=== PATIENT | male | born 1960 | race Caucasian/White ===

== ENCOUNTER 2020-01-18 16:13 | Inpatient (IN) | payer MEDICARE, MEDICAID ==
[~2020-01-18] VITALS: Ht 175.3 cm; Wt 59.0 kg
[2020-01-18] MEDS ORDERED: TEMAZEPAM30 MG ORAL (16:20)
[2020-01-18 16:30] VITALS: BP 120/79
[2020-01-18] MEDS ORDERED: Haloperidol 5mg/ml Inj IM ONE (16:30)
--- NOTE | 2020-01-18 16:30 | NUR ---
ED Nurse Note: Pt BIBA for behavioral complaint. Pt is from psych facility and was brought in due to running into streets and hearing voices telling him to harm himself. Pt denies SI and HI at this time. He is alert and ox4, bizarre.
[2020-01-18] MEDS ORDERED: HALOPERIDOL1 MG ORAL (16:32)
[2020-01-18] MEDS ORDERED: ZYPREXA10 MG ORAL (16:32)
[2020-01-18 17:18] LABS: BASOPHILS % (AUTO) 1.2 % (0.0-2.0); EOSINOPHILS % (AUTO) 1.6 % (0.0-3.0); HEMATOCRIT 39.4 % (42.0-52.0); HEMOGLOBIN 13.1 G/DL (14.2-18.0); LYMPHOCYTES % (AUTO) 29.5 % (20.0-45.0); MEAN CORPUSCULAR VOLUME 89 FL (80-99); MONOCYTES % (AUTO) 10.1 % (1.0-10.0); NEUTROPHILS % (AUTO) 57.6 % (45.0-75.0); PLATELET COUNT 129 K/UL (150-450); RED BLOOD COUNT 4.43 M/UL (4.70-6.10); RED CELL DISTRIBUTION WIDTH 11.6 % (11.6-14.8); WHITE BLOOD COUNT 4.6 K/UL (4.8-10.8)
[2020-01-18 17:23] LABS: ANION GAP 11 mmol/L (5-15); BLOOD UREA NITROGEN 20 mg/dL (7-18); CALCIUM 9.1 MG/DL (8.5-10.1); CARBON DIOXIDE 29 MMOL/L (21-32); CHLORIDE 104 MMOL/L (98-107); CREATININE 1.4 MG/DL (0.55-1.30); POTASSIUM 3.7 MMOL/L (3.5-5.1); SODIUM 143 MMOL/L (136-145)
[2020-01-18 17:29] LABS: ALANINE AMINOTRANSFERASE 16 U/L (12-78); ALBUMIN 3.7 G/DL (3.4-5.0); ALBUMIN/GLOBULIN RATIO 1.1 (1.0-2.7); ALKALINE PHOSPHATASE 99 U/L (46-116); ASPARTATE AMINO TRANSFERASE 16 U/L (15-37); BILIRUBIN,TOTAL 0.2 MG/DL (0.2-1.0)
--- NOTE | 2020-01-18 18:00 | NUR ---
ED Nurse Note: COVID swab sent.
--- NOTE | 2020-01-18 18:44 | Emergency Room Report ---
History of Present Illness General Chief Complaint: Behavioral Complaint Source: Patient, EMS (Gi Elizalde) Present Illness HPI 59 YO Male presents to the ED brought by RA for auditory hallucination of voices telling him to hurt himself. According to RA, pt. was running out in the street and reporting hallucinations .Pt. was residing at a board and care residence and has a known hx of bipolar. pt. takes Haldol and Zyprexa. He is poorly cooperative and keeps saying "He shouldn't be telling us this" and "He shouldn't be here". He does not elaborate. He admits to hearing voices. He does not give specific details regarding what the voices are directing him to do. He denies drug use. Pt. reports psychiatric hx. He denies pain. He denies SOB, DEVRIES or CP. HPI and ROS are limited due to poor pt. cooperation and unwillingness to provide specific details. (Gi Elizalde) Allergies: Coded Allergies: No Known Allergies (Unverified , 01/18/20) COVID-19 Screening Contact w/high risk pt: No Recent Travel to affected area: No Experienced COVID-19 symptoms?: No COVID-19 Testing performed MOLD HOISTER: No (Gi Elizalde) Patient History Past Medical History: see triage record, psych hx Reviewed Nursing Documentation: PMH: Agreed (Gi Elizalde) Nursing Documentation-PMH Past Medical History: No History, Except For History Of Psychiatric Problem: Yes - schizophrenia, bipolar (Gi Elizalde) Review of Systems All Other Systems: limited (Gi Elizalde) Physical Exam Vital Signs Date Time Temp Pulse Resp B/P (MAP) Pulse Ox O2 Delivery O2 Flow Rate FiO2 01/18/20 16:13 97.9 90 17 113/83 (93) 97 Room Air 01/18/20 16:30 98 Sp02 EP Interpretation: reviewed, normal General Appearance: no apparent distress, alert, GCS 15, non-toxic, thin, other - Disheveled, poor fingernail hygiene. Patient has visible and obvious insect infestation., Chronically Ill Head: normocephalic, atraumatic Eyes: bilateral eye normal inspection, bilateral eye PERRL ENT: hearing grossly normal, normal voice Neck: full range of motion Respiratory: chest non-tender, lungs clear, normal breath sounds, no wheezing, speaking full sentences Cardiovascular #1: regular rate, rhythm, no edema Gastrointestinal: non tender, soft Musculoskeletal: back normal, normal range of motion, gait/station normal, non- tender Neurologic: alert, motor strength/tone normal, oriented x3, sensory intact, responsive, speech normal Psychiatric: other - auditory hallucinations. pt. is restless. Pt. is poorly cooperative in conversation. Pt. is apprehensive with providing details. Denies HI. Denies Si plan Skin: other - poor skin and nail hygiene (Gi Elizalde) Medical Decision Making PA Attestation Dr. Dewey is my supervising Physician whom patient management has been discussed with. (Gi Elizalde) Diagnostic Impression: Primary Impression: Psychosis Qualified Codes: F25.0 - Schizoaffective disorder, bipolar type Additional Impressions: Failure to thrive Qualified Codes: R62.7 - Adult failure to thrive Infestation by insect ER Course 59 YO Male presents to the ED brought by RA for auditory hallucination of voices telling him to hurt himself. According to RA, pt. was running out in the street and reporting hallucinations .Pt. was residing at a board and care residence and has a known hx of bipolar. pt. takes Haldol and Zyprexa. He is poorly cooperative and keeps saying "He shouldn't be telling us this" and "He shouldn't be here". He does not elaborate. He admits to hearing voices. He does not give specific details regarding what the voices are directing him to do. He denies drug use. Pt. reports psychiatric hx. He denies pain. He denies SOB, DEVRIES or CP. HPI and ROS are limited due to poor pt. cooperation and unwillingness to provide specific details. Pt is hyperactive, and has a very anxious and restless affect. Ddx considered but are not limited to OD, SI/HI, psychosis, UTI, intoxication Vital signs: are WNL, pt. is afebrile H&PE are most consistent with behavioral/mental health issue ORDERS: -CBC: Pancytopenia - CMP: Cr. 1.4, BUN 20 -Serum ETOH: WNL -UA: Pending at time of sign-out -UDS: Pending at time of sign-out -Salicylates and Acetaminophen - no acute intoxication. ED INTERVENTIONS: - 5mg Haldol PO - 2mg Risperdal PO - 1 liter NS IV Psychiatric Consultation: Dr. Parker. Pt. was evaluated/examined by Dr. Parker who recommended 2mg Risperdal and hospital admission for acute psychosis in geriatric patient and failure to thrive. DISPOSITION: at this time pt. will be admitted to Dr. Mendieta for acute psychosis in geriatric patient and failure to thrive. Dr. Mendieta agreed to admit the pt. and to continue pt. care management. Labs Test 01/18/20 16:50 White Blood Count 4.6 K/UL (4.8-10.8) Red Blood Count 4.43 M/UL (4.70-6.10) Hemoglobin 13.1 G/DL (14.2-18.0) Hematocrit 39.4 % (42.0-52.0) Mean Corpuscular Volume 89 FL (80-99) Mean Corpuscular Hemoglobin 29.5 PG (27.0-31.0) Mean Corpuscular Hemoglobin Concent 33.2 G/DL (32.0-36.0) Red Cell Distribution Width 11.6 % (11.6-14.8) Platelet Count 129 K/UL (150-450) Mean Platelet Volume 10.2 FL (6.5-10.1) Neutrophils (%) (Auto) 57.6 % (45.0-75.0) Lymphocytes (%) (Auto) 29.5 % (20.0-45.0) Monocytes (%) (Auto) 10.1 % (1.0-10.0) Eosinophils (%) (Auto) 1.6 % (0.0-3.0) Basophils (%) (Auto) 1.2 % (0.0-2.0) Sodium Level 143 MMOL/L (136-145) Potassium Level 3.7 MMOL/L (3.5-5.1) Chloride Level 104 MMOL/L (98-107) Carbon Dioxide Level 29 MMOL/L (21-32) Anion Gap 11 mmol/L (5-15) Blood Urea Nitrogen 20 mg/dL (7-18) Creatinine 1.4 MG/DL (0.55-1.30) Estimat Glomerular Filtration Rate 51.7 mL/min (>60) Glucose Level 106 MG/DL (74-106) Calcium Level 9.1 MG/DL (8.5-10.1) Total Bilirubin 0.2 MG/DL (0.2-1.0) Aspartate Amino Transf (AST/SGOT) 16 U/L (15-37) Alanine Aminotransferase (ALT/SGPT) 16 U/L (12-78) Alkaline Phosphatase 99 U/L (46-116) Total Protein 7.1 G/DL (6.4-8.2) Albumin 3.7 G/DL (3.4-5.0) Globulin 3.4 g/dL Albumin/Globulin Ratio 1.1 (1.0-2.7) Salicylates Level 0.8 ug/mL (2.8-20) Acetaminophen Level < 2 MCG/ML (10-30) Serum Alcohol < 3 mg/dL (Gi Elizalde) ER Course Dr Edgar was seen and evaluated by [facility] El[facility]al[facility]. Patient has extensive psychiatric history. Patient was evaluated by Dr Parker. Agrees that patient is gravely disabled and cannot be safely discharged. She recommends admission. Labs drawn. Given Risperdal. Patient will be admitted to Dr Sahu service. (Brian Dewey MD) Last Vital Signs Date Time Temp Pulse Resp B/P (MAP) Pulse Ox O2 Delivery O2 Flow Rate FiO2 01/18/20 16:30 97.9 76 18 120/79 98 Room Air 01/18/20 16:30 98 (Gi Elizalde) Status: improved (Brian Dewey MD) Disposition: ADMITTED INPATIENT Condition: Serious Physician Consult: Dr. Parker (Gi Elizalde) Referrals: NON PHYSICIAN (PCP) Gi Elizalde Jan 18, 2020 18:44 Brian Dewey MD Jan 18, 2020 19:26
[2020-01-18 18:58] VITALS: BP 118/82
--- NOTE | 2020-01-18 18:59 | NUR ---
ED Nurse Note: ERMD aware pt unable to provide urine yet. Refusing straight cath.
--- NOTE | 2020-01-18 19:05 | NUR ---
ED Nurse Note: Report received from BENNIE Montesinos.
--- NOTE | 2020-01-18 19:30 | NUR ---
NURSE NOTES: Received patient from ER, on wheelchair accompanied by 2 staff. Alert and oriented x4. Per patient, no suicidal intention at this time. Skin assessment done. No open wound but there is redness on the face, flaking and dryness on the head. Per ER nurse there were unknown bugs seen on patient's clothing and was put on blue bag. Belongings checked. Charge nurse made aware. Put on isolation precautions on time of arrival. Vital signs taken and recorded. Oriented to room. Instructed to use call light for assistance. Obtained admission orders from Dr. Mendieta, orders in and carried out. Addendum: 01/19/20 at 0258 by LOULOU GOODMAN RN this note is for 01/18/20 - 21:45
--- NOTE | 2020-01-18 19:40 | NUR ---
ED Nurse Note: Report given to BENNIE Villarreal.
--- NOTE | 2020-01-18 19:50 | NUR ---
ED Nurse Note: Pt is stable for transfer to [facility] unit at this time per ERMD. Pt is aaox4, breathing is normal and unlabored. Pt is in no acute distress. Pt taken to unit via gurney with ISO precuations. Pt belongings sent with pt. Pt IV intact and patent.
[2020-01-18 20:00] VITALS: BP 134/85
[2020-01-18] MEDS ORDERED: OLANZapine 10mg tab ORAL SCH (21:00)
[2020-01-18] MEDS: Heparin 5000 units/ml inj SUBQ SCH (21:00)
[2020-01-18] MEDS ORDERED: LORazepam 1mg tab ORAL PRN (21:18)
--- NOTE | 2020-01-18 21:20 | NUR ---
NURSE NOTES: Called Dr. Parker to clarify patient's Haloperidol dose from the facility he came from. Unable to read back due to the noise of MD's background then she hung up. After, some new orders were seen from MD. Charge nurse made aware.
[2020-01-19] VITALS: BP 159/99
--- NOTE | 2020-01-19 03:00 | Consultation ---
DATE OF CONSULTATION: 01/18/2020 CONSULTING PHYSICIAN: Maximo Parker M.D. HISTORY OF PRESENT ILLNESS: This is a 59-year-old male with a history of schizophrenia, who was admitted to the hospital, who was found on the streets. He is more confused than baseline. He has sherwood all over his body. He is tangential and agitated, unable to be engaged and answer the questions. He in the emergency room due to severe agitation. The patient is disheveled and malodorous. He is angry and is unable to provide any meaningful history. PAST PSYCHIATRY HISTORY: He denies any psychiatric hospitalization. PAST MEDICAL HISTORY: Unknown. ALLERGIES: No known drug allergies. SUBSTANCE ABUSE HISTORY: No known history of illicit drug use or alcohol. MENTAL STATUS EXAMINATION: The patient is awake, oriented to self, place. Uncooperative. Mood is angry. Affect is flat. Thought process is disorganized. Thought content, no suicidal or homicidal ideation. Cognition is impaired. Insight and judgment impaired. ASSESSMENT: [place] I Acute encephalopathy. . Schizophrenia. [place] II Deferred. [place] III As above. [place] IV Low. [place] V 20. PLAN: We will admit the patient to medical floor. Maximo Parker M.D. DR: SHERI JOB#: [id number] CC:
[2020-01-19 04:00] VITALS: BP 141/76
--- NOTE | 2020-01-19 07:30 | NUR ---
NURSE NOTES: Received patient in bed. Awake, A/O x4. On room air. Patient denies pain. IV in the Left AC, site intact. Patient denies hallucinations at this time. Bed low and locked.
--- NOTE | 2020-01-19 07:33 | NUR ---
HAND-OFF: Report given to BENNIE Pham.
[2020-01-19 08:00] VITALS: BP 112/76
[2020-01-19] MEDS: Docusate 100mg cap ORAL SCH ×2 (08:29→17:10)
[2020-01-19] MEDS: Heparin 5000 units/ml inj SUBQ SCH ×2 (09:00→20:43)
--- NOTE | 2020-01-19 09:01 | NUR ---
NURSE NOTES: Patietn refused heparin injection x3. Patient educated on risks and benefits.
[2020-01-19 12:00] VITALS: BP 122/77
--- NOTE | 2020-01-19 12:45 | NUR ---
CASE MANAGEMENT:INITIAL REVIEW 59 YR OLD MALE BIBA FROM [facility];BEHAVIORAL COMPLAINT SI;FAILURE TO THRIVE. PSYCHOSIS. INFESTATION BY INSECT. 98.2 90 20 124/85 97% ON RA BUN 20 CR 1.4 IS;HALDOL IM RISPERDAL PO IVF NSBOLUS COVID-19 PCR ~ RESULT PENDING ADMITTED TO MED SURG MED SURG STATUS DCP;PATIENT IS FROM [facility]
[2020-01-19 16:00] VITALS: BP 151/80
--- NOTE | 2020-01-19 19:01 | NUR ---
HAND-OFF: Report given to Mel AVERY.
--- NOTE | 2020-01-19 19:10 | NUR ---
NURSE NOTES: received report from aiyana chen. patient on bed, asleep. with iv line on the left ac, saline lock. denies any pain or discomfort. with urinal on the bedside.per gustavo," patient is calm through out his shift.no episodes of aggressiveness or suicidal ideation". bed locked and in lowest position. call light and light button within easy reach. bed alarm on. will continue plan of care
--- NOTE | 2020-01-19 19:15 | History and Physical Report ---
DATE OF ADMISSION: 01/18/2020 REASON FOR ADMISSION: Toxic metabolic encephalopathy. HISTORY OF PRESENT ILLNESS: This is a 59-year-old male with a history of schizophrenia, admitted, found on the street. The patient is with increased confusion. The patient is agitated, difficult to fully obtain. The patient appears to be disheveled and malodorous. The patient is not cooperating at this time. The patient's care is discussed and reviewed. PAST MEDICAL HISTORY: Mostly psychiatric with multiple psychiatric admissions. The patient has no clear medical history at this time. MEDICATIONS: Reviewed. ALLERGIES: Reviewed. SOCIAL HISTORY: Unclear. The patient appears to be homeless. REVIEW OF SYSTEMS: The patient is refusing to answer at this time. PHYSICAL EXAMINATION: GENERAL: The patient is a disheveled-appearing male. VITAL SIGNS: Blood pressure 112/76, pulse 70, respirations 20, saturations 100%, and temperature 97.9. HEENT: Negative. NECK: Supple. Extraocular motions intact. LUNGS: Moderate breath sounds. Moderate air entry. CARDIAC: S1, S2. Regular rate and rhythm. ABDOMEN: Soft, nontender. EXTREMITIES: No cyanosis or clubbing. The patient appears to be overall nonfocal. LABORATORY DATA: Reviewed. BUN 20, creatinine 1.4, hemoglobin 13, and hematocrit 39. IMPRESSION: 1. Anemia. 2. Chronic renal failure. 3. Possibly bipolar disorder. 4. Metabolic encephalopathy. 5. Disheveled and homeless state. RECOMMENDATIONS: Supportive care. Encourage fluids. Psychiatric followup and recommendation. Possible need for admission versus a locked psychiatric unit. We will reassess and recommend and assist with disposition from a medical standpoint. Jayson Mendieta M.D. DR: FELICITA JOB#: [id number] CC:
[2020-01-19 20:00] VITALS: BP 104/64
--- NOTE | 2020-01-19 21:31 | Psych Consult Progress Note ---
Psychiatry Progress Note Psychiatry Progress Note Medications Current Medications Medications (Trade) Dose Ordered Sig/Lia Route PRN Reason Start Time Stop Time Status Last Admin Dose Admin Acetaminophen (Tylenol) 650 mg Q4H PRN ORAL Temp >100.5/mild pain 01/18/20 20:45 02/17/20 20:44 Al Hydroxide/Mg Hydroxide (Mylanta) 30 ml Q4H PRN ORAL stomach upset/heartburn 01/18/20 20:45 02/17/20 20:44 Docusate Sodium (Colace) 100 mg BID ORAL 01/19/20 09:00 02/18/20 08:59 01/19/20 17:10 Ferrous Sulfate (Feosol) 325 mg BID ORAL 01/19/20 09:00 04/18/20 08:59 01/19/20 17:11 Heparin Sodium (Porcine) (Heparin 5000 units/ml) 5,000 units EVERY 12 HOURS SUBQ 01/18/20 21:00 03/03/20 20:59 Lorazepam (Ativan) 1 mg Q6H PRN ORAL For Anxiety 01/18/20 21:18 01/25/20 21:17 Multivitamins (Multivitamins) 1 tab DAILY ORAL 01/19/20 09:00 02/18/20 08:59 01/19/20 08:29 Pantoprazole (Protonix) 40 mg DAILY ORAL 01/19/20 09:00 02/18/20 08:59 01/19/20 08:29 Risperidone (RisperDAL) 2 mg BEDTIME ORAL 01/19/20 21:00 03/04/20 20:59 01/19/20 20:43 Temazepam (Restoril) 15 mg HSPRN PRN ORAL Insomnia 01/18/20 21:00 01/25/20 20:59 Neurological/Psychiatric: Reports: anxiety, depressed, emotional problems Allergies: Coded Allergies: No Known Allergies (Unverified , 01/18/20) Objective Data Height (Feet): 5 Height (Inches): 9.00 Weight (Pounds): 130 General Appearance: WD/WN, no apparent distress, alert Appearance: disheveled Behavior Mannerisms: good eye contact Mental Status Exam - Affect: constricted Speech: clear Mental Status Exam - Thought P: confusion, disorganized Perceptual Disturbances: hallucinations Mental Status Exam - Suicidal: not present Additional Comments: awake, oriented to self, place. Uncooperative. Mood is angry. Affect is flat. Thought process is disorganized. Thought content, no suicidal or homicidal ideation. Cognition is impaired. Insight and judgment impaired. Assessment/Plan [place] I: ASSESSMENT: [place] I Acute encephalopathy. Schizophrenia. [place] II Deferred. [place] III As above. [place] IV Low. [place] V 20. Assessment/Plan: PLAN: risperdal 4mg po qhs depakote 500 mg po qhs Maximo Parker MD Jan 19, 2020 21:31
--- NOTE | 2020-01-19 22:00 | NUR ---
NURSE NOTES: patient refused heparin subq. he's complaining of unable to sleep. restoril given as ordered.
[2020-01-20] VITALS: BP 100/60
[2020-01-20 04:00] VITALS: BP 110/75
--- NOTE | 2020-01-20 07:18 | NUR ---
HAND-OFF: Report given to aiyana chen. patient is on bed, awake. no sob. call light and light button within easy reach. plan of care endorsed.
--- NOTE | 2020-01-20 07:20 | NUR ---
NURSE NOTES: Received patient in bed. Awake, A/O x4. On room air. Patient denies pain. Bed low and locked.
[2020-01-20 08:00] VITALS: BP 125/68
[2020-01-20] MEDS: Heparin 5000 units/ml inj SUBQ SCH ×2 (09:00→20:42)
[2020-01-20] MEDS: Docusate 100mg cap ORAL SCH ×2 (09:16→17:35)
--- NOTE | 2020-01-20 09:20 | NUR ---
NURSE NOTES: Patient refused subcut heparin injection. Patient states "I do not want it." Refused x3. Re-educated on use, risks and benefits.
--- NOTE | 2020-01-20 10:47 | NUR ---
RD ASSESSMENT & RECOMMENDATIONS SEE CARE ACTIVITY FOR COMPLETE ASSESSMENT DAILY ESTIMATED NEEDS: Needs based on Renal. 59kg 25-35 kcals/kg 3099-0392 total kcals 1-1.5 g protein/kg 59-89 g total protein 25-30 mL/kg 2459-7539 total fluid mLs NUTRITION DIAGNOSIS: Altered nutrition related lab values r/t clinical status as evidenced by low WBC (4.6), elev creat (1.4). CURRENT DIET: Regular soft easy chew PO DIET RECOMMENDATIONS: Low Na diet / soft easy chew ADDITIONAL RECOMMENDATIONS: 1) Obtain a standing weight as able 2) Monitor for continued good po intake 3) Evaluate once off iso 4) Add Ensure the bottle qdaily
--- NOTE | 2020-01-20 11:09 | NUR ---
CASE MANAGEMENT:REVIEW SI;ENCEPHALOPATHY. COVID-19 POSITIVE. ANEMIA. 98.4 78 20 100/60 96% ON RA IS;PROTONIX PO QD HEPARIN SUBQ Q12 RISPERDAL PO HS ATIVAN PO Q6 PRN MED SURG STATUS DCP;PATIENT IS FROM [facility]
[2020-01-20 12:00] VITALS: BP 137/71
--- NOTE | 2020-01-20 13:35 | General Progress Note ---
Assessment/Plan Assessment/Plan: IMPRESSION: 1. Anemia. 2. Chronic renal failure. 3. Possibly bipolar disorder. 4. Metabolic encephalopathy. 5. Disheveled and homeless state. 6. COVID+ PLAN isolation dc on hold psych rx will call ID to see impression, plan, and exam edited and reviewed in detail care discussed with RN Subjective Allergies: Coded Allergies: No Known Allergies (Unverified , 01/18/20) Subjective care noted COVID+ Objective Last 24 Hour Vital Signs Date Time Temp Pulse Resp B/P (MAP) Pulse Ox O2 Delivery O2 Flow Rate FiO2 01/20/20 09:00 Room Air 01/20/20 08:00 97.7 71 20 125/68 (87) 98 01/20/20 04:00 97.3 60 19 110/75 (87) 96 01/20/20 00:00 98.0 78 19 100/60 (73) 97 01/19/20 21:00 Room Air 01/19/20 20:00 98.4 67 20 104/64 (77) 98 01/19/20 16:00 98.1 69 20 151/80 (103) 97 Intake and Output 01/19/20 01/20/20 19:00 07:00 Intake Total 750 ml 650 ml Balance 750 ml 650 ml Intake Oral 750 ml 650 ml # Voids 3 3 Height (Feet): 5 Height (Inches): 9.00 Weight (Pounds): 130 Objective deferred due to COVID+ Jayson Mendieta MD Jan 20, 2020 13:35
[2020-01-20 16:00] VITALS: BP 139/85
--- NOTE | 2020-01-20 16:02 | NUR ---
NURSE NOTES: Patient refusing to provide urine sample for urine drug screen. Refused x3.
--- NOTE | 2020-01-20 18:36 | Diagnostic Imaging Report ---
EXAM: XR Chest, 1 View CLINICAL HISTORY: COUGH TECHNIQUE: Frontal view of the chest. COMPARISON: No relevant prior studies available. FINDINGS: Lungs: Unremarkable. No consolidation. Pleural space: Unremarkable. No pneumothorax. Heart: Unremarkable. No cardiomegaly. Mediastinum: Unremarkable. Bones/joints: Unremarkable. IMPRESSION: 1. No acute cardiopulmonary disease. 2. If there is continued concern recommend frontal and lateral chest radiographs or CT.
--- NOTE | 2020-01-20 19:27 | NUR ---
HAND-OFF: Report given to Mel AVERY.
--- NOTE | 2020-01-20 19:30 | NUR ---
NURSE NOTES:Received report from aiyana chen. patient is on bed, asleep. with iv line on the left ac, saline lock. no sob at the moment. per gustavo" patient refused to collect urine for the drug screen". afebrile. bed locked and in lowest position. call light and light button within easy reach. will continue plan of care. Addendum: 01/20/20 at 2113 by Mali Aiken RN NURSE NOTES:
[2020-01-20 20:00] VITALS: BP 113/70
--- NOTE | 2020-01-20 23:38 | Psych Consult Progress Note ---
Psychiatry Progress Note Psychiatry Progress Note Subjective the pt is the same disorganized and delusional Medications Current Medications Medications (Trade) Dose Ordered Sig/Lia Route PRN Reason Start Time Stop Time Status Last Admin Dose Admin Acetaminophen (Tylenol) 650 mg Q4H PRN ORAL Temp >100.5/mild pain 01/18/20 20:45 02/17/20 20:44 Al Hydroxide/Mg Hydroxide (Mylanta) 30 ml Q4H PRN ORAL stomach upset/heartburn 01/18/20 20:45 02/17/20 20:44 Docusate Sodium (Colace) 100 mg BID ORAL 01/19/20 09:00 02/18/20 08:59 01/20/20 17:35 Ferrous Sulfate (Feosol) 325 mg BID ORAL 01/19/20 09:00 04/18/20 08:59 01/20/20 17:35 Heparin Sodium (Porcine) (Heparin 5000 units/ml) 5,000 units EVERY 12 HOURS SUBQ 01/18/20 21:00 03/03/20 20:59 Lorazepam (Ativan) 1 mg Q6H PRN ORAL For Anxiety 01/18/20 21:18 01/25/20 21:17 Multivitamins (Multivitamins) 1 tab DAILY ORAL 01/19/20 09:00 02/18/20 08:59 01/20/20 09:16 Pantoprazole (Protonix) 40 mg DAILY ORAL 01/19/20 09:00 02/18/20 08:59 01/20/20 09:16 Risperidone (RisperDAL) 2 mg BEDTIME ORAL 01/19/20 21:00 03/04/20 20:59 01/20/20 20:13 Temazepam (Restoril) 15 mg HSPRN PRN ORAL Insomnia 01/18/20 21:00 01/25/20 20:59 01/20/20 21:27 Allergies: Coded Allergies: No Known Allergies (Unverified , 01/18/20) Objective Data Height (Feet): 5 Height (Inches): 9.00 Weight (Pounds): 130 Additional Comments: awake, oriented to self, place. Uncooperative. Mood is angry. Affect is flat. Thought process is disorganized. Thought content, no suicidal or homicidal ideation. Cognition is impaired. Insight and judgment impaired. Assessment/Plan [place] I: schizophrenia Assessment/Plan: PLAN: risperdal 4mg po qhs depakote 500 mg po qhs Maximo Dangelo MD Jan 20, 2020 23:38
[2020-01-21] VITALS: BP 118/76
[2020-01-21 04:00] VITALS: BP 122/78
--- NOTE | 2020-01-21 07:34 | NUR ---
HAND-OFF: Report given to aiyana schmidt.patient is on bed, asleep .no sob. afebrile. call light and light button within easy reach. plan of care endorsed.
[2020-01-21 08:00] VITALS: BP 117/73
--- NOTE | 2020-01-21 08:04 | NUR ---
NURSE NOTES: Report received from Mel AVERY. Patient seen on rounds, asleep but easily rousable, not in distress, tolerating room air. PIV on left AC patent and intact. Patient is continent x2 and ambulatory. Isolation precautions maintained. Bed low and locked, siderails up x2, call light placed within reach and instructed to call nurse for assistance. Will continue to monitor.
[2020-01-21] MEDS: Heparin 5000 units/ml inj SUBQ SCH ×2 (09:00→20:48)
[2020-01-21] MEDS ORDERED: Haloperidol Decanoate (Long Acting) 50mg Inj IM ONE (09:00)
[2020-01-21] MEDS: Depakote 500mg tab ORAL SCH (09:01)
[2020-01-21] MEDS: Docusate 100mg cap ORAL SCH ×2 (09:01→17:12)
--- NOTE | 2020-01-21 09:37 | General Progress Note ---
Assessment/Plan Assessment/Plan: IMPRESSION: 1. Anemia. 2. Chronic renal failure. 3. Possibly bipolar disorder. 4. Metabolic encephalopathy. 5. Disheveled and homeless state. 6. COVID+ PLAN isolation dc on hold psych rx CXR negative ID follow up currently fairly asymptomatic impression, plan, and exam edited and reviewed in detail care discussed with RN Subjective Allergies: Coded Allergies: No Known Allergies (Unverified , 01/18/20) Subjective care noted COVID+ Objective Last 24 Hour Vital Signs Date Time Temp Pulse Resp B/P (MAP) Pulse Ox O2 Delivery O2 Flow Rate FiO2 01/21/20 08:00 97.5 92 15 117/73 (88) 95 01/21/20 04:00 98.1 70 20 122/78 (93) 98 01/21/20 00:00 98.3 83 20 118/76 (90) 98 01/20/20 21:00 Room Air 01/20/20 20:00 98.0 70 20 113/70 (84) 98 01/20/20 16:00 97.7 78 20 139/85 (103) 98 01/20/20 12:00 97.9 73 18 137/71 (93) 98 Intake and Output 01/20/20 01/21/20 19:00 07:00 Intake Total 700 ml 500 ml Balance 700 ml 500 ml Intake Oral 700 ml 500 ml # Voids 3 3 Height (Feet): 5 Height (Inches): 9.00 Weight (Pounds): 130 Objective deferred due to COVID+ Jayson Mendieta MD Jan 21, 2020 09:37
[2020-01-21 12:00] VITALS: BP 139/87
[2020-01-21 16:00] VITALS: BP 124/83
--- NOTE | 2020-01-21 19:24 | NUR ---
HAND-OFF: Report given to Anjaliu RN.
--- NOTE | 2020-01-21 19:25 | NUR ---
NURSE NOTES: Patient awake and verbally responsive. Afebrile and O2 sat 97% on room air. Denies pain or discomfort. Unlabored breathing on room air. IV noted intact. Bed placed at the lowest with alarm, brake, and siderails up for safety measures. Call light placed within reach. Will continue to monitor and provide care as ordered.
[2020-01-21 20:00] VITALS: BP 100/69
--- NOTE | 2020-01-21 20:14 | Consultation ---
DATE OF CONSULTATION: 01/21/2020 INFECTIOUS DISEASES CONSULTATION CONSULTING PHYSICIAN: Estee Rea MD. REFERRING PHYSICIAN: Jayson Mendieta MD. REASON FOR CONSULTATION: COVID-19 pneumonia. HISTORY OF PRESENTING ILLNESS: This is a 59-year-old gentleman with history of schizophrenia, who was found on the street confused. He is unable to provide a history. An Infectious Diseases consultation has been obtained for antibiotics. PAST MEDICAL HISTORY: History of schizophrenia. SOCIAL HISTORY: He is homeless. Unknown. FAMILY HISTORY: Unknown. REVIEW OF SYSTEMS: Unable to obtain currently. MEDICATIONS: As an inpatient, he is on Risperdal, Depakote, Protonix, multivitamin, ferrous sulfate, docusate, lorazepam, subcutaneous heparin, Restoril, Tylenol, Mylanta. ALLERGIES: No known drug allergies. PHYSICAL EXAMINATION: VITAL SIGNS: Temperature 97.5, T-max of 98.4, pulse of 92, respiratory rate 15, blood pressure 117/73, O2 saturation of 95% on room air. Examination deferred due to COVID-19 LABORATORY AND DIAGNOSTIC DATA: White count 4.6, hemoglobin 13.1, hematocrit 39.4, MCV 89, platelet count of 129, neutrophils of 57%. Sodium 143, potassium 3.7, chloride 104, bicarb 29, BUN 20, creatinine 1.4, glucose 106, calcium 9.1. Total bilirubin 0.2, AST 16, ALT 16, and alkaline phosphatase 99. Total protein 7.1. Albumin 3.7. Rectal swab was negative for VRE. Nasal swab was negative for MRSA. On 01/18/2020, COVID-19 test was positive. Chest x-ray on 01/20/2020 showed no acute disease. ASSESSMENT: This is a 59-year-old gentleman with history of schizophrenia, who comes in and is found to have. 1. COVID-19 test positive. He is on room air with 95% O2 saturation. He does not qualify for remdesivir EUA. 2. Schizophrenia. PLAN: 1. 1 dose of ivermectin. Patient unable to consent, Benefits outweigh the risks. 2. Continue isolation. 3. We will follow up patient clinically. I would like to thank, Dr. Mendieta, for this consultation. Estee Rea M.D. DR: EMIR JOB#: [id number] CC: Jayson Mendieta M.D.; Fax#: [phone] [facility]
--- NOTE | 2020-01-21 21:37 | NUR ---
NURSE NOTES: Discussed infection risk for IV insertion lasting greater than 72 hours. Explained the need for new IV insertion. Patient verbalized understanding. Explained process prior and during the new IV insertion. Inserted 24g on right forearm and removed the previous IV. Patient tolerated well. New IV Intact, dry, clean, and patent. Will continue to monitor.
--- NOTE | 2020-01-21 22:33 | Psych Consult Progress Note ---
Psychiatry Progress Note Psychiatry Progress Note Subjective the pt is angry and agitated Medications Current Medications Medications (Trade) Dose Ordered Sig/Lia Route PRN Reason Start Time Stop Time Status Last Admin Dose Admin Acetaminophen (Tylenol) 650 mg Q4H PRN ORAL Temp >100.5/mild pain 01/18/20 20:45 02/17/20 20:44 Al Hydroxide/Mg Hydroxide (Mylanta) 30 ml Q4H PRN ORAL stomach upset/heartburn 01/18/20 20:45 02/17/20 20:44 Divalproex Sodium (Depakote) 500 mg DAILY ORAL 01/21/20 09:00 02/20/20 08:59 01/21/20 09:01 Docusate Sodium (Colace) 100 mg BID ORAL 01/19/20 09:00 02/18/20 08:59 01/21/20 17:12 Ferrous Sulfate (Feosol) 325 mg BID ORAL 01/19/20 09:00 04/18/20 08:59 01/21/20 17:12 Heparin Sodium (Porcine) (Heparin 5000 units/ml) 5,000 units EVERY 12 HOURS SUBQ 01/18/20 21:00 03/03/20 20:59 Lorazepam (Ativan) 1 mg Q6H PRN ORAL For Anxiety 01/18/20 21:18 01/25/20 21:17 Multivitamins (Multivitamins) 1 tab DAILY ORAL 01/19/20 09:00 02/18/20 08:59 01/21/20 09:01 Pantoprazole (Protonix) 40 mg DAILY ORAL 01/19/20 09:00 02/18/20 08:59 01/21/20 09:01 Risperidone (RisperDAL) 4 mg BEDTIME ORAL 01/21/20 21:00 03/06/20 20:59 01/21/20 20:48 Temazepam (Restoril) 15 mg HSPRN PRN ORAL Insomnia 01/18/20 21:00 01/25/20 20:59 01/20/20 21:27 Neurological/Psychiatric: Reports: anxiety, depressed, emotional problems Allergies: Coded Allergies: No Known Allergies (Unverified , 01/18/20) Objective Data Height (Feet): 5 Height (Inches): 9.00 Weight (Pounds): 130 General Appearance: WD/WN, no apparent distress, alert, agitated, alert oriented x3 Assessment/Plan Problem List: (1) Schizophrenia ICD Codes: F20.9 - Schizophrenia, unspecified SNOMED: 16050049 Assessment/Plan: PLAN: risperdal 4mg po qhs depakote 500 mg po qhs haldol jun Maximo Parker MD Jan 21, 2020 22:33
[2020-01-22] VITALS: BP 104/71
[2020-01-22 04:00] VITALS: BP 116/73
--- NOTE | 2020-01-22 07:21 | NUR ---
HAND-OFF: Report given to BENNIE Colbert. Made rounds with receiving RN. Plan of care endorsed.
--- NOTE | 2020-01-22 07:34 | NUR ---
NURSE NOTES: Report received from Minsu, RN. Patient seen on rounds, AxOx3, not in distress, tolerating room air. Afebrile. Nurse reports patient slept well overnight. PIV on right forearm patent and intact. No behavioral issues or suicidal ideations verbalized. Isolation precautions maintained, bed low and locked, siderails up x2, call light placed within reach and instructed to call nurse for assistance. Will continue to monitor.
[2020-01-22 08:00] VITALS: BP 107/75
[2020-01-22] MEDS: Depakote 500mg tab ORAL SCH (08:26)
[2020-01-22] MEDS: Docusate 100mg cap ORAL SCH ×2 (08:26→17:22)
[2020-01-22] MEDS: Heparin 5000 units/ml inj SUBQ SCH ×2 (08:27→20:51)
--- NOTE | 2020-01-22 08:31 | General Progress Note ---
Assessment/Plan Assessment/Plan: IMPRESSION: 1. Anemia. 2. Chronic renal failure. 3. Possibly bipolar disorder. 4. Metabolic encephalopathy. 5. Disheveled and homeless state. 6. COVID+ PLAN isolation as is dc on hold psych rx CXR negative ID follow up - currently not treatment needed currently fairly asymptomatic impression, plan, and exam edited and reviewed in detail care discussed with RN Subjective Allergies: Coded Allergies: No Known Allergies (Unverified , 01/18/20) Subjective care noted COVID+ Objective Last 24 Hour Vital Signs Date Time Temp Pulse Resp B/P (MAP) Pulse Ox O2 Delivery O2 Flow Rate FiO2 01/22/20 08:00 97.9 73 18 107/75 (86) 96 01/22/20 04:00 98.6 75 18 116/73 (87) 97 01/22/20 00:00 98.2 74 18 104/71 (82) 96 01/21/20 21:00 Room Air 01/21/20 20:00 98.6 78 18 100/69 (79) 96 01/21/20 17:38 Room Air 01/21/20 16:00 98.2 76 19 124/83 (97) 96 01/21/20 12:00 96.6 80 18 139/87 (104) 96 01/21/20 09:00 Room Air Intake and Output 01/21/20 01/22/20 19:00 07:00 Intake Total 600 ml Balance 600 ml Intake Oral 600 ml # Voids 2 1 Height (Feet): 5 Height (Inches): 9.00 Weight (Pounds): 130 Objective deferred due to COVID+ Jayson Mendieta MD Jan 22, 2020 08:31
[2020-01-22 12:00] VITALS: BP 105/73
--- NOTE | 2020-01-22 15:06 | Infectious Diseases Prog Note ---
Assessment/Plan Assessment/Plan A: 1. COVID-19 test positive. 2. Schizophrenia. 3. Anemia 4. Renal failure 5. Homeless PLAN: 1. Received 1 dose of ivermectin. 2. Continue isolation. Subjective ROS Limited/Unobtainable: Yes Constitutional: Denies: fever Allergies: Coded Allergies: No Known Allergies (Unverified , 01/18/20) Objective Last 24 Hour Vital Signs Date Time Temp Pulse Resp B/P (MAP) Pulse Ox O2 Delivery O2 Flow Rate FiO2 01/22/20 12:00 98.1 71 18 105/73 (84) 96 01/22/20 09:00 Room Air 01/22/20 08:00 97.9 73 18 107/75 (86) 96 01/22/20 04:00 98.6 75 18 116/73 (87) 97 01/22/20 00:00 98.2 74 18 104/71 (82) 96 01/21/20 21:00 Room Air 01/21/20 20:00 98.6 78 18 100/69 (79) 96 01/21/20 17:38 Room Air 01/21/20 16:00 98.2 76 19 124/83 (97) 96 Height (Feet): 5 Height (Inches): 9.00 Weight (Pounds): 130 HEENT: mucous membranes moist Respiratory/Chest: no respiratory distress Cardiovascular: normal rate Abdomen: soft, non tender Neurologic/Psychiatric: other - sleeping Current Medications Medications (Trade) Dose Ordered Sig/Lia Route PRN Reason Start Time Stop Time Status Last Admin Dose Admin Acetaminophen (Tylenol) 650 mg Q4H PRN ORAL Temp >100.5/mild pain 01/18/20 20:45 02/17/20 20:44 Al Hydroxide/Mg Hydroxide (Mylanta) 30 ml Q4H PRN ORAL stomach upset/heartburn 01/18/20 20:45 02/17/20 20:44 Divalproex Sodium (Depakote) 500 mg DAILY ORAL 01/21/20 09:00 02/20/20 08:59 01/22/20 08:26 Docusate Sodium (Colace) 100 mg BID ORAL 01/19/20 09:00 02/18/20 08:59 01/22/20 08:26 Ferrous Sulfate (Feosol) 325 mg BID ORAL 01/19/20 09:00 04/18/20 08:59 01/22/20 08:26 Heparin Sodium (Porcine) (Heparin 5000 units/ml) 5,000 units EVERY 12 HOURS SUBQ 01/18/20 21:00 03/03/20 20:59 Lorazepam (Ativan) 1 mg Q6H PRN ORAL For Anxiety 01/18/20 21:18 01/25/20 21:17 Multivitamins (Multivitamins) 1 tab DAILY ORAL 01/19/20 09:00 02/18/20 08:59 01/22/20 08:27 Pantoprazole (Protonix) 40 mg DAILY ORAL 01/19/20 09:00 02/18/20 08:59 01/22/20 08:26 Risperidone (RisperDAL) 4 mg BEDTIME ORAL 01/21/20 21:00 03/06/20 20:59 01/21/20 20:48 Temazepam (Restoril) 15 mg HSPRN PRN ORAL Insomnia 01/18/20 21:00 01/25/20 20:59 01/20/20 21:27 Tr Pichardo MD Jan 22, 2020 15:06
[2020-01-22 16:00] VITALS: BP 116/71
--- NOTE | 2020-01-22 19:15 | NUR ---
NURSE NOTES: Received report from Katerine AVERY. Pt. is awake and in bed, alert and oriented. No sob noted. Denies any pain at this time. On continued isolation and observed at all times. Will continue to monitor.
--- NOTE | 2020-01-22 19:19 | NUR ---
HAND-OFF: Report given to Reji AVERY.
[2020-01-22 20:00] VITALS: BP 115/76
[2020-01-23] VITALS: BP 118/76
[2020-01-23 04:00] VITALS: BP 118/77
--- NOTE | 2020-01-23 07:24 | NUR ---
HAND-OFF: Report given to Luz AVERY..
--- NOTE | 2020-01-23 07:30 | NUR ---
NURSE NOTES: Report received from BENNIE Solo. Patient is in bed, no SOB, alert and oriented x 3-4, bed in lowest position with breaks engaged and alarm on, IV line on right forearm patent and intact, on droplet and contact isolation for COVID 19, on room air tolerating well, denies any pain or discomfort at this time, will continue to monitor and proceed with plan of care. Call light within reach.
[2020-01-23 08:00] VITALS: BP 117/60
--- NOTE | 2020-01-23 08:53 | General Progress Note ---
Assessment/Plan Assessment/Plan: IMPRESSION: 1. Anemia. 2. Chronic renal failure. 3. Possibly bipolar disorder. 4. Metabolic encephalopathy. 5. Disheveled and homeless state. 6. COVID+ PLAN isolation as is dc on hold psych rx CXR negative ID follow up - currently not treatment needed currently fairly asymptomatic impression, plan, and exam edited and reviewed in detail care discussed with RN Subjective Allergies: Coded Allergies: No Known Allergies (Unverified , 01/18/20) Subjective care noted COVID+ Objective Last 24 Hour Vital Signs Date Time Temp Pulse Resp B/P (MAP) Pulse Ox O2 Delivery O2 Flow Rate FiO2 01/23/20 08:00 97.5 72 18 117/60 (79) 96 01/23/20 04:00 98.6 75 18 118/77 (91) 96 01/23/20 00:00 98.8 72 18 118/76 (90) 96 01/22/20 21:00 Room Air 01/22/20 20:00 98.6 70 18 115/76 (89) 95 01/22/20 16:00 97.7 74 20 116/71 (86) 98 01/22/20 12:00 98.1 71 18 105/73 (84) 96 01/22/20 09:00 Room Air Intake and Output 01/22/20 01/23/20 19:00 07:00 Intake Total 450 ml 600 ml Balance 450 ml 600 ml Intake Oral 450 ml 600 ml # Voids 2 2 # Bowel Movements 1 Height (Feet): 5 Height (Inches): 9.00 Weight (Pounds): 130 Objective deferred due to COVID+ Jayson Mendieta MD Jan 23, 2020 08:53
[2020-01-23] MEDS: Heparin 5000 units/ml inj SUBQ SCH (09:00)
[2020-01-23] MEDS: Depakote 500mg tab ORAL SCH (09:14)
[2020-01-23] MEDS: Docusate 100mg cap ORAL SCH (09:14)
--- NOTE | 2020-01-23 10:44 | Infectious Diseases Prog Note ---
Assessment/Plan Assessment/Plan antibiotics : none A 1. COVID 19 pneumonia on room air, O2 saturation 96 percent s/p ivermectin 01.21.20 2. schizophrenia P 1. continue off antibiotics 2. continue isolation Subjective ROS Limited/Unobtainable: Yes Allergies: Coded Allergies: No Known Allergies (Unverified , 01/18/20) Objective Last 24 Hour Vital Signs Date Time Temp Pulse Resp B/P (MAP) Pulse Ox O2 Delivery O2 Flow Rate FiO2 01/23/20 09:00 Room Air 01/23/20 08:00 97.5 72 18 117/60 (79) 96 01/23/20 04:00 98.6 75 18 118/77 (91) 96 01/23/20 00:00 98.8 72 18 118/76 (90) 96 01/22/20 21:00 Room Air 01/22/20 20:00 98.6 70 18 115/76 (89) 95 01/22/20 16:00 97.7 74 20 116/71 (86) 98 01/22/20 12:00 98.1 71 18 105/73 (84) 96 Height (Feet): 5 Height (Inches): 9.00 Weight (Pounds): 130 Current Medications Medications (Trade) Dose Ordered Sig/Lia Route PRN Reason Start Time Stop Time Status Last Admin Dose Admin Acetaminophen (Tylenol) 650 mg Q4H PRN ORAL Temp >100.5/mild pain 01/18/20 20:45 02/17/20 20:44 Al Hydroxide/Mg Hydroxide (Mylanta) 30 ml Q4H PRN ORAL stomach upset/heartburn 01/18/20 20:45 02/17/20 20:44 Divalproex Sodium (Depakote) 500 mg DAILY ORAL 01/21/20 09:00 02/20/20 08:59 01/23/20 09:14 Docusate Sodium (Colace) 100 mg BID ORAL 01/19/20 09:00 02/18/20 08:59 01/23/20 09:14 Ferrous Sulfate (Feosol) 325 mg BID ORAL 01/19/20 09:00 04/18/20 08:59 01/23/20 09:14 Heparin Sodium (Porcine) (Heparin 5000 units/ml) 5,000 units EVERY 12 HOURS SUBQ 01/18/20 21:00 03/03/20 20:59 Lorazepam (Ativan) 1 mg Q6H PRN ORAL For Anxiety 01/18/20 21:18 01/25/20 21:17 Multivitamins (Multivitamins) 1 tab DAILY ORAL 01/19/20 09:00 02/18/20 08:59 01/23/20 09:14 Pantoprazole (Protonix) 40 mg DAILY ORAL 01/19/20 09:00 02/18/20 08:59 01/23/20 09:15 Risperidone (RisperDAL) 4 mg BEDTIME ORAL 01/21/20 21:00 03/06/20 20:59 01/22/20 20:50 Temazepam (Restoril) 15 mg HSPRN PRN ORAL Insomnia 01/18/20 21:00 01/25/20 20:59 01/20/20 21:27 Estee Rea MD Jan 23, 2020 10:44
[2020-01-23 12:00] VITALS: BP 100/60
--- NOTE | 2020-01-23 12:53 | NUR ---
*-*DISCHARGE PLANNING*-* PATIENT HAS BEEN REFERRED BACK TO: [facility] P: [phone] PLACED A CALL AT 12PM, NO, ANSWER PLACED A CALL AT 12:15PM, NO ANSWER PLACED A CALL AT 12:20PM, NO AMSWER PLACED A CALL AT 12:35PM, NO ANSWER PLACED A CALL AT 12:45PM, NO ANSWER PLACED A CALL AT12:50PM, NO ANSWER PLACED A CALL AT 1PM, NO ANSWER Addendum: 01/23/20 at 1304 by HEMA MARIO CM CORRECT NUMBER [facility] P: [phone]
--- NOTE | 2020-01-23 13:04 | NUR ---
*-*DISCHARGE PLANNING*-* PATIENT HAS BEEN REFERRED TO: [facility] P: [phone] S/W FLAVIA, WILL CALL BACK AFTER REVIEW. Addendum: 01/23/20 at 1348 by HEMA MARIO CM *-*DISCHARGE PLANNING*-* PATIENT HAS BEEN REFERRED TO: [facility] P: [phone] S/[facility], STILL REVIEWING CLINICALS
--- NOTE | 2020-01-23 14:44 | NUR ---
*-*DISCHARGE PLANNING*-* PATIENT HAS BEEN ACCEPTED AND WILL BE DISCHARGED TO: [facility] P: [phone] FOR NURSE TO NURSE REPORT RM# 104.A SKILLED
--- NOTE | 2020-01-23 14:49 | NUR ---
*-*DISCHARGE PLANNED*-* PATIENT HAS BEEN ACCEPTED AND WILL BE DISCHARGED TO: [facility] P: [phone] FOR NURSE TO NURSE REPORT RM# 104.A SKILLED [facility] SET FOR 4:30 PM S/W IRIS PLACED A CALL TO NEXT TO KIN, DOMINIC CHAVARRIA, NO ANSWER, LEFT VOICE MESSAGE.
[2020-01-23] MEDS ORDERED: DIVALPROEX SOD500 MG PO (15:05)
[2020-01-23] MEDS ORDERED: DOCUSATE SODIU100 MG ORAL (15:06)
[2020-01-23] MEDS ORDERED: FERROUS SULFAT325 MG ORAL (15:06)
[2020-01-23] MEDS ORDERED: HEPARIN SO5000 UNIT2 SUBQ (15:07)
[2020-01-23] MEDS ORDERED: MULTIVITAMIN1 EACH PO (15:07)
[2020-01-23] MEDS ORDERED: RISPERDAL2 MG ORAL (15:08)
--- NOTE | 2020-01-23 15:31 | NUR ---
NURSE NOTES: Patient will be discharged to [facility], report given to Colin. Left a message with next of kin, Jessee Whittaker.
[2020-01-23 16:00] VITALS: BP 118/73
--- NOTE | 2020-01-23 17:58 | NUR ---
NURSE NOTES: Patient was discharged to [facility] at 1745 in stable condition accompanied by 2 machine builder. Discharge paper works and inventory signed, no missing belongings noted. IV line and ID band removed. No c/o any discomfort upon discharge, vital signs WNL BP: 118/73 RR: 18 HR: 68 T:97.5 02 sat at 97% on room air.
--- NOTE | 2020-01-23 18:53 | Psych Consult Progress Note ---
Psychiatry Progress Note Psychiatry Progress Note Subjective the pt is doing better less agitated and delusional Neurological/Psychiatric: Reports: anxiety, depressed, emotional problems Allergies: Coded Allergies: No Known Allergies (Unverified , 01/18/20) Objective Data Height (Feet): 5 Height (Inches): 9.00 Weight (Pounds): 130 General Appearance: no apparent distress, alert, alert oriented x3 - episodic conusion Appearance: no abnormalities noted Behavior Mannerisms: poor eye contact Mental Status Exam - Affect: blunted Mental Status Exam - Thought P: tangential, disorganized Mental Status Exam - Thought C: delusions (specify) Mental Status Exam - Suicidal: not present Assessment/Plan Problem List: (1) Schizophrenia ICD Codes: F20.9 - Schizophrenia, unspecified SNOMED: [id number] Status: stable Assessment/Plan: PLAN: risperdal 4mg po qhs depakote 500 mg po qhs haldol Maximo Dewey MD Jan 23, 2020 18:53
--- NOTE | 2020-01-24 16:34 | Discharge Summary ---
Discharge Summary Discharge Summary _ DATE OF ADMISSION: 01/18/2020 DATE OF DISCHARGE: 01/23/2020 DISCHARGED BY: Dr. Mendieta REASON FOR ADMISSION: 59 years old male with past medical history of schizophrenia was found on the street and brought for evaluation due to altered mental status. Patient appeared disheveled, malodorous and agitated at best Patient was not cooperative. Upon evaluation vital signs were stable. Laboratory work-up revealed WBC 4.6, hemoglobin 13.1, platelet count 129. Stable electrolytes. BUN 20, creatinine 1.4. Glucose 106. Stable LFT. Albumin 3.7. Serum alcohol level less than 3, serum salicylate and Tylenol level negative. Chest x-ray demonstrated no acute cardiopulmonary disease. Patient was noncooperative , and did not provide urine sample to obtain urine toxicology screen and check for possible UTI. Patient declined CT scan of the head. Patient was swabbed for COVID 19. Patient subsequently admitted to medical surgical floor. CONSULTANTS: ID specialist Dr. Rea psychiatrist [facility] COURSE: Patient admitted to to medical surgical floor and started on the IV hydration. Patient was kept in isolation. Psychiatrist and infectious disease specialist followed. Patient was tested positive for COVID-19. Pulse oximetry remained stable on room air. Pulmonary toilet was on board as needed. Patient received ivermectin x 1. Patient was continued on isolation . ID specialist recommended to keep patient off antibiotics. Patient remained fairly asymptomatic. Renal parameters and electrolytes were monitored. Nephrotoxic's were avoided. Psychiatric medication regimen was optimized as per psychiatrist recommendation. Reality orientation and supportive therapy provided. Placement was found and secured at [facility]. Patient was stable for transfer. FINAL DIAGNOSES: COVID-19 positive Metabolic encephalopathy Chronic renal failure Anemia Schizophrenia Homeless state DISCHARGE MEDICATIONS: See Medication Reconciliation list. DISCHARGE INSTRUCTIONS: Patient was discharged to the senior living facility. Follow up with medical doctor at the facility. I have been assigned to dictate discharge summary for this account. I was not involved in the patient's management. Rachel Mendoza NP Jan 24, 2020 16:34
== END 2020-01-23 17:45 | DRG 177 ==
LOC: EDBD 16:13 → EMR 16:47 → EDBEDREQ 16:54 → 4E 17:15 → EDBEDREQ 18:55 → 4E 20:41
DX: U07.1 COVID-19 (principal); G93.41 Metabolic encephalopathy; F20.9 Schizophrenia, unspecified; D64.9 Anemia, unspecified; N18.9 Chronic kidney disease, unspecified; F31.9 Bipolar disorder, unspecified; Z59.0 Homelessness
CPT/HCPCS: 36415; 71045; 80053; 85025; 87081; 96360; 96372; 99285; G0480; J7030